=== PATIENT | male | born 1980 | race American Indian/Alaskan Native ===

== ENCOUNTER 2019-04-19 09:32 | Emergency (ER) | payer SELFPAY ==
[2019-04-19 10:12] LABS: Basophils % (Auto) 0.2 % (0.0-1.8); Eosinophils # (Auto) 0.2 K/mm3 (0.0-0.4); Eosinophils % (Auto) 3.6 % (0.0-4.3); Hematocrit 44.5 % (35.5-45.6); Hemoglobin 14.8 gm/dl (11.8-15.2); Lymphocytes # (Auto) 1.1 K/mm3 (1.2-5.4); Lymphocytes % (Auto) 25.6 % (13.4-35.0); Mean Corpuscular HGB Conc 33 % (32-34); Mean Corpuscular Volume 87 fl (84-94); Monocytes # (Auto) 0.4 K/mm3 (0.0-0.8); Monocytes % (Auto) 8.9 % (0.0-7.3); Platelet Count 132 K/mm3 (140-440); Red Blood Count 5.11 M/mm3 (3.65-5.03); Red Cell Distribution Width 13.4 % (13.2-15.2)
[2019-04-19 10:31] LABS: BUN/Creatinine Ratio 6; Blood Urea Nitrogen 6 mg/dL (9-20); Calcium 9.2 mg/dL (8.4-10.2); Hemolysis Index 9
[2019-04-19] MEDS ORDERED: K-DUR PO ONE (10:38)
[2019-04-19] MEDS ORDERED: KEPPRA 1,000 MG/NS 0.75% 100ML 1,000 MG/100 ML BAG IV ONE ×2 (11:03→11:06)
--- NOTE | 2019-04-19 11:29 | Emergency Department Report ---
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 Girlfriend heard him fall and found him slumped over on the toilet. Upon EMS arrival V is oriented to self only but a row became alert and oriented 4. Patient is prescribed Keppra 1000 mg twice a day. He is intermittently compliant cost of medication. On average he takes the medication only once a day did not have a dose this morning. Patient states he feels 6 tablets at a time which cost him $25 he currently has a prescription for his Keppra uses a good Rx card to make his meds more affordable. He is not currently under care of a neurologist due to lack of insurance. Pt ambulates without assisted device at baseline. - Related Data Allergies Allergy/AdvReac Type Severity Reaction Status Date / Time tetracycline Allergy Unknown Verified 04/19/19 09:48 ED Review of Systems ROS: Stated complaint: AMS Other details as noted in HPI Comment: All other systems reviewed and negative ED Past Medical Hx - Past Medical History Previous Medical History?: Yes Hx CVA: Yes (Residual left sided weakness) Hx Seizures: Yes Additional medical history: Hyperlipidemia - Surgical History Past Surgical History?: Yes Hx Pacemaker: Yes (since ) - Social History Smoking Status: Unknown if ever smoked ED Physical Exam - General Limitations: No Limitations - Other Other exam information: General: No limitations, patient is alert in no acute distress Head exam: Craniotomy scar noted Eyes exam: Normal appearance, pupils equal reactive to light, extraocular movements intact ENT: Moist mucous membrane, normal oropharynx Neck exam: Normal inspection, full range of motion, no meningismus nontender Respiratory exam: Clear to auscultation bilateral, no wheezes, rales, crackles Cardiovascular: Normal rate and rhythm, normal heart sounds Abdomen: Soft, nondistended, and nontender, with normal bowel sounds, no rebound, or guarding Extremity: Full range of motion normal inspection no deformity Back: Normal Inspection, full range of motion, no tenderness Neurologic: Alert, oriented x3, cranial nerves intact, left arm contracted with minimum movement. Left foot drop with weakness with good antigravity movement of left leg. Psychiatric: normal affect, normal mood Skin: Warm, dry, intact ED Course Vital Signs 04/19/19 04/19/19 09:43 11:01 Temperature 97.9 F Pulse Rate 62 60 Respiratory 16 16 Rate Blood Pressure 102/64 Blood Pressure 121/49 [Left] O2 Sat by Pulse 100 100 Oximetry ED Medical Decision Making - Lab Data Result diagrams: 04/19/19 09:58 04/19/19 09:58 Lab Results 04/19/19 04/19/19 04/19/19 Range/Units 09:58 09:58 10:36 WBC 4.3 L (4.5-11.0) K/mm3 RBC 5.11 H (3.65-5.03) M/mm3 Hgb 14.8 (11.8-15.2) gm/dl Hct 44.5 (35.5-45.6) % MCV 87 (84-94) fl MCH 29 (28-32) pg MCHC 33 (32-34) % RDW 13.4 (13.2-15.2) % Plt Count 132 L (140-440) K/mm3 Lymph % (Auto) 25.6 (13.4-35.0) % [place] % (Auto) 8.9 H (0.0-7.3) % Eos % (Auto) 3.6 (0.0-4.3) % Baso % (Auto) 0.2 (0.0-1.8) % Lymph # 1.1 L (1.2-5.4) K/mm3 [place] # 0.4 (0.0-0.8) K/mm3 Eos # 0.2 (0.0-0.4) K/mm3 Baso # 0.0 (0.0-0.1) K/mm3 Seg Neutrophils % 61.7 (40.0-70.0) % Seg Neutrophils # 2.6 (1.8-7.7) K/mm3 Sodium 140 (137-145) mmol/L Potassium 3.4 L (3.6-5.0) mmol/L Chloride 103.0 (98-107) mmol/L Carbon Dioxide 23 (22-30) mmol/L Anion Gap 17 mmol/L BUN 6 L (9-20) mg/dL Creatinine 1.0 (0.8-1.5) mg/dL Estimated GFR > 60 ml/min BUN/Creatinine Ratio 6 % Glucose 95 (75-100) mg/dL POC Glucose 93 (70-105) Calcium 9.2 (8.4-10.2) mg/dL Magnesium 2.00 (1.7-2.3) mg/dL - Medical Decision Making Seizure likely secondary to medication noncompliance. Patient received Keppra load 1 g in the ED. Mild hypokalemia was supplemented. Patient without any other physical symptoms and be discharged home. Encouraged to take medication as prescribed but it is understandable that that he has difficulty affording the medication - Differential Diagnosis medications noncompliant, rate procedure, he literally abnormality Critical Care Time: No Critical care attestation.: If time is entered above; I have spent that time in minutes in the direct care of this critically ill patient, excluding procedure time. ED Disposition Clinical Impression: Seizure, Noncompliance with medication regimen, Hypokalemia Disposition: DC- TO HOME OR SELFCARE Is pt being admited?: No Does the pt Need Aspirin: No Condition: Stable Instructions: Recurrent Seizures Adult (ED), Hypokalemia (ED) Additional Instructions: Continue your Keppra as prescribed. Follow up with your doctor or the clinic/doctor provided. Return if symptoms worsen as indicated by your dis charge instructions [facility] [Primary Care Provider] - 3-5 Days CAR LOMAS MD [Staff Physician] - 3-5 Days Time of Disposition: 12:05
[2019-04-19 12:46] VITALS: BP 133/54
== END 2019-04-19 12:45 | disposition home or self-care (01) ==
LOC: ED 09:32
DX: E87.6 Hypokalemia (principal); R56.9 Unspecified convulsions; I63.9 Cerebral infarction, unspecified; E78.5 Hyperlipidemia, unspecified; Z95.0 Presence of cardiac pacemaker; Z88.1 Allergy status to other antibiotic agents
CPT/HCPCS: 36415; 80048; 82962; 83735; 85025; 96374; 99284; J1953